=== PATIENT | female | born 1995 | race Caucasian/White ===

== ENCOUNTER 2017-06-14 18:27 | Emergency (ER) | payer BC ==
[2017-06-14 20:17] VITALS: BP 103/58
--- NOTE | 2017-06-14 21:48 | UC ---
UC General HPI - HPI Summary HPI Summary: pt states this began 2 weeks ago with a sharp pain in her R lower abdomen with urination only. that sharp pain increased on and became constant. Tuesday, she developed "all over nerve-skin pain". yesterday began some light sensitivity, sore throat and an occasional cough. today, pt has a fever of 102.5 , addis infirmaty checked a rapid strep which was neg and refer pt to ER [facility]. denies cp, sob, v/d/dysuria and vaginal d/c. states has never been sexually active. - History of Current Complaint Hx Obtained From: Patient Hx Last Menstrual Period: 05/21/17 Onset/Duration: Gradual Onset Pain Intensity: 5 Associated Signs & Symptoms: Positive: Cough, Fever. Negative: Chest Pain, Diarrhea, Dysuria <Viry Matos - Last Filed: 06/14/17 22:45> <Marisol Palafox - Last Filed: 06/15/17 06:55> - History of Current Complaint Chief Complaint: UCGeneralIllness Stated Complaint: FEVER /ABD PAIN/SORE THROAT Time Seen by Provider: 06/14/17 21:28 - Allergy/Home Medications Allergies/Adverse Reactions: Allergies Allergy/AdvReac Type Severity Reaction Status Date / Time No Known Allergies Allergy Verified 06/14/17 20:03 Home Medications: Home Medications Ferrous Sulfate TAB* 325 mg PO DAILY 06/14/17 [History Confirmed 06/14/17] Multivitamin [Animal Shapes Vitamins] 1 each PO 06/14/17 [History] PMH/Surg Hx/FS Hx/Imm Hx Neurological History: Migraine - Surgical History Surgical History: Yes Surgery Procedure, Year, and Place: BACK SURGERY TO CORRECT SCOLIOSIS 2010 - Family History Known Family History: Positive: Cardiac Disease - Social History Occupation: Student Lives: Dormitory/Roommates Alcohol Use: None Substance Use Type: None Smoking Status (MU): Never Smoked Tobacco - Immunization History Vaccination Up to Date: Yes <Viry Matos - Last Filed: 06/14/17 22:45> Review of Systems Constitutional: Fever Eyes: Photophobia ENT: Sore Throat Respiratory: Cough Gastrointestinal: Abdominal Pain Neurological: Other - "nerve/skin pain" Is Patient Immunocompromised?: No All Other Systems Reviewed And Are Negative: Yes <Viry Matos - Last Filed: 06/14/17 22:45> Physical Exam Triage Information Reviewed: Yes Appearance: Ill-Appearing Vital Signs: Initial Vital Signs Temp 101.3 F 06/14/17 20:04 Pulse 75 06/14/17 20:04 Resp 18 06/14/17 20:04 BP 103/58 06/14/17 20:04 Pulse Ox 100 06/14/17 20:04 Vital Signs Reviewed: Yes Eye Exam: Normal ENT: Positive: Pharyngeal erythema, TMs normal, Uvula midline. Negative: Nasal congestion, Nasal drainage, Tonsillar swelling, Tonsillar exudate, Trismus, Muffled voice, Hoarse voice Neck: Positive: Supple, Nontender, No Lymphadenopathy Respiratory: Positive: Lungs clear, Normal breath sounds, No respiratory distress Cardiovascular: Positive: RRR, No Murmur Abdomen Description: Positive: Other: - Flat, hyperactive BS, soft, mildly tender R side of abdomen, no mass, no hsm, no cva tenderness, no guarding or rebound tenderness. Negative psoas and obturator sign. Musculoskeletal: Positive: ROM Intact, No Edema Neurological: Positive: Alert Psychological Exam: Normal Psychological: Positive: Age Appropriate Behavior Skin Exam: Other - Flushed and warm. <Viry Matos - Last Filed: 06/14/17 22:45> Vital Signs: Initial Vital Signs Temp 101.3 F 06/14/17 20:04 Pulse 75 06/14/17 20:04 Resp 18 06/14/17 20:04 BP 103/58 06/14/17 20:04 Pulse Ox 100 06/14/17 20:04 <Marisol Palafox - Last Filed: 06/15/17 06:55> Diagnostics - Laboratory Diagnostic Studies Completed/Ordered: u/a=unremarkable, hcg=neg, rapid flu=neg, rapid strep=neg <Viry Matos - Last Filed: 06/14/17 22:45> Course/Dx - Course Course Of Treatment: pt is ill but not toxic. she has had a fever today of 102.5. her u/a, hcg, rapid flu and strep are all unremarkable. her R sided abdominal pain/tenderness with this fever requires additional evaluation. pt advised of need for ER transfer. She was advised of the risk for missed diagnosis, worsening and disability even that could result from a lack of the additional evaluation. I offered to speak to pt's mom; however, pt declined citing her mom wants her to go to the ER but "i'm not going". Pt is a&o x3, she is able to make decisions and refuse the transfer thus i must respect her wish. pt to leave [facility]. - Differential Dx - Multi-Symptom Provider Diagnoses: Leaving [facility], fever, abdominal pain <Viry Matos - Last Filed: 06/14/17 22:45> Discharge <Viry Matos - Last Filed: 06/14/17 22:45> <Marisol Palafox - Last Filed: 06/15/17 06:55> - Discharge Plan Condition: Stable Disposition: AGAINST MEDICAL ADVICE Patient Education Materials: Acute Abdominal Pain (ED) Referrals: Non Staff,Doctor [Primary Care Provider] - Additional Instructions: FOLLOW UP WITH [facility] IN AM. YOU MAY GO TO ER AT ANY TIME IF YOU CHANGE YOUR MIND. Attestation Statement User Type: Provider - I was available for consult. This patient was seen by the [facility]. The patient was not presented to, seen by, or examined by me. Joo <Marisol Palafox - Last Filed: 06/15/17 06:55>
== END 2017-06-14 22:54 | disposition left against medical advice (07) ==
LOC: UCCORT 18:27
DX: R50.9 Fever, unspecified (principal); R10.31 Right lower quadrant pain; Z32.02 Encounter for pregnancy test, result negative; Z53.21 Procedure and treatment not carried out due to patient leaving prior to being seen by health care provider
CPT/HCPCS: 81003; 84702; 87086; 87502; 87651; 99202; G0463